=== PATIENT | male | born 1955 | race Caucasian/White ===

== ENCOUNTER 2017-10-30 10:02 | Day surgery (SDC) | payer OTHER ==
[2017-10-23 08:19] VITALS: BMI 34.0
--- NOTE | 2017-10-23 08:46 | PAT Medication Instructions ---
Service Date Oct 23, 2017. Current Home Medication List Atorvastatin (Lipitor), 10 MG PO QPM Omeprazole (Prilosec), 20 MG PO QAM Triamcinolone Acet (Aristocort 0.1%), 1 DOSE TOP PRN Medication Instructions For Your Scheduled Surgery - Hold the following medications 24 hours prior to surgery: Triamcinolone Acet (Aristocort 0.1%), 1 DOSE TOP PRN - Take the following medications the morning of surgery with a sip of water: Omeprazole (Prilosec), 20 MG PO QAM - Take the following medications as scheduled the night before surgery: Atorvastatin (Lipitor), 10 MG PO QPM If you have any questions please call us at [phone] or [phone] or [phone]
--- NOTE | 2017-10-23 09:42 | DIAGNOSTIC IMAGING REPORT ---
CHEST 2 VIEWS ROUTINE CLINICAL HISTORY: Preoperative chest COMPARISON STUDY: Chest CT dated 02/17/2010 FINDINGS: The cardiac and mediastinal contours are normal. There is no evidence of focal pulmonary consolidation. There is no evidence of failure. No pleural effusions are visualized.[There is minor basilar atelectasis/scarring. IMPRESSION: No active disease in the chest. Electronically signed by: Dave Vital M.D. 10/23/2017 9:41 AM Dictated Date/Time: 10/23/2017 9:40 AM
[2017-10-23 09:44] LABS: BASO % 0.6 %; BASO ABS # 0.05 K/uL (0-0.2); EOS % 2.8 %; EOS ABS # 0.23 K/uL (0-0.5); HEMATOCRIT 47.8 % (42-52); HEMOGLOBIN 16.9 g/dL (14.0-18.0); IG# 0.05 K/uL (0.00-0.02); LYMPH % 25.7 %; MEAN CORPUSCULAR HEMOGLOBIN 31.1 pg (25-34); MEAN CORPUSCULAR HGB CONC 35.4 g/dl (32-36); MEAN PLATELET VOLUME 9.9 fL (7.4-10.4); NEUT % 59.3 %; NEUT ABS # 4.84 K/uL (1.4-6.5); PLATELET COUNT 290 K/uL (130-400); RED CELL DISTRIBUTION WIDTH CV 13.6 % (11.5-14.5); RED CELL DISTRIBUTION WIDTH SD 43.8 fL (36.4-46.3); WHITE BLOOD COUNT 8.17 K/uL (4.8-10.8)
[~2017-10-30] VITALS: Ht 182.9 cm; Wt 115.8 kg
[~2017-10-30 10:02] MED LIST: ATOR10TA82 PO; LACTATED RINGER'S 1000ML 1,000 ML IV SCH; PRLSR20 PO; TRMCR130WC TOP
[2017-10-30 10:37] VITALS: BP 140/83; PULSE 67; TEMP 36.8; O2SAT 95; Ht 182.9 cm; Wt 115.8 kg
[2017-10-30] MEDS ORDERED: ATROPINE SULFATE 0.1 MG/ML 5ML SYR IV PRN (11:00)
[2017-10-30] MEDS ORDERED: EpHEDrine SULFATE INJ 50 MG/ML AMP IV PRN (11:00)
[2017-10-30] MEDS ORDERED: ONDANSETRON INJ 2 MG/ML 2 ML VIAL IV PRN ×2 (11:00→14:15)
[2017-10-30] MEDS ORDERED: PROMETHAZINE HCL INJ 12.5 MG in SODIUM CHLORIDE 0.9% 50ML 50 ML IV PRN (11:00)
--- NOTE | 2017-10-30 11:51 | History & Physical Bridge Note ---
H&P Re-Evaluation Bridge Note: I have examined the patient, reviewed the History & Physical and in the interval since the performance of the History & Physical I have noted the following changes of clinical significance: No changes notedSO at bedside pt marked all questions answered
[2017-10-30] MEDS ORDERED: BUPIVACAINE 0.5 % 5 MG/1 ML MPF 30ML VIAL ONE (12:06)
[2017-10-30] MEDS ORDERED: BACITRACIN 50000 UNIT VIAL ONE (12:06)
[2017-10-30] MEDS ORDERED: ONDANSETRON INJ 2 MG/ML 2 ML VIAL ONE (12:09)
[2017-10-30] MEDS ORDERED: DEXAMETHASONE SOD INJ 4 MG/ML VIAL ONE (12:09)
[2017-10-30] MEDS ORDERED: FENTANYL CITRATE INJ 50 MCG/1 ML 2 ML VIAL ONE ×2 (12:09→13:23)
[2017-10-30] MEDS ORDERED: NEOSTIGMINE METHYLSULFATE 5 MG/5 ML SYR ONE (12:09)
[2017-10-30] MEDS ORDERED: PROPOFOL IV EMULSION 10 MG/ML 20 ML VIAL IV ONE (12:09)
[2017-10-30] MEDS ORDERED: GLYCOPYRROLATE INJ 0.2 MG/ML VIAL ONE ×2 (12:09→12:54)
[2017-10-30] MEDS ORDERED: MIDAZOLAM HCL 1 MG/ML 2ML VIAL ONE (12:09)
[2017-10-30] MEDS ORDERED: LIDOCAINE HCL 2% 2 ML VIAL (20MG/ML) ONE (12:09)
[2017-10-30] MEDS ORDERED: CEFAZOLIN SOD 1 GM VIAL ONE (12:54)
[2017-10-30] MEDS ORDERED: LARYING-O-JET KIT (LTA) ONE (12:54)
[2017-10-30] MEDS ORDERED: SODIUM CHLORIDE 0.9% INJ 10 ML VIAL ONE (12:54)
--- NOTE | 2017-10-30 13:49 | [facility] Operative Report ---
Operative Report Operative Date Oct 30, 2017. Pre-Operative Diagnosis Abdominal hernia recurrent supraumbilical Post-Operative Diagnosis Same Procedure(s) Performed Laparoscopic Repair of Recurrent Periumbilical Hernia with 10cm surgimesh Surgeon Dr Castle [place] K[place] Surgeon(s) Lg Yanez PA-C Estimated Blood Loss 10ml Findings incarcerated preperitoneal fat in defect fidel 1.5 cm Specimens none Description of Procedure OR summary dictated confirmation number [id number] I attest to the content of the Intraoperative Record and any orders documented therein. Any exceptions are noted below.
[2017-10-30] MEDS: FENTANYL CITRATE INJ 50 MCG/1 ML 2 ML VIAL IV PRN ×4 (14:00→14:15)
[2017-10-30] MEDS ORDERED: LACTATED RINGER'S 1000ML 1,000 ML IV SCH (14:03)
[2017-10-30] MEDS ORDERED: OXYC-57 PO (14:04)
--- NOTE | 2017-10-30 14:06 | Discharge Instructions ---
Discharge Instructions Date of Service Oct 30, 2017. Visit Reason for Visit: Abdominal Wall Hernia Discharge Discharge Diagnosis / Problem: laparoscopic hernia repair Discharge Goals Goal(s): Decrease discomfort Activity Recommendations Activity Limitations: as noted below Shower/Bathe: tomorrow (remove bandage to shower, leave ster-strips on until follow-up appt) Driving or Machine Use: resume 3 days after discharge Anesthesia . Post Anesthesia Instructions: If you have had General Anesthesia or IV Sedation: * Do not drive today. * Resume driving when surgeon permits. * Do not make important decisions or sign legal documents today. * Call surgeon for: 1. Temperature elevations greater than 101 degrees F. 2. Uncontrollable pain. 3. Excessive bleeding. 4. Persistent nausea and vomiting. 5. Medication intolerance (nausea, vomiting or rash). * For nausea and vomiting use only clear liquids such as: tea, soda, bouillon until nausea subsides, then gradually increase diet as tolerated. * If you have any concerns or questions, call your surgeon's office. If physician is unavailable and it is an emergency, call 911 or go to the nearest emergency room. . Instructions / Follow-Up Instructions / Follow-Up Dr. Castle in 1 week, call [phone] for any questions Diet Recommendations Recommended Home Diet: no limitations Procedures Procedures Performed: Laparoscopic Repair of Recurrent Periumbilical Hernia with 10cm surgimesh Pending Studies Studies pending at discharge: no Medical Emergencies . Who to Call and When: Medical Emergencies: If at any time you feel your situation is an emergency, please call 911 immediately. . Non-Emergent Contact Non-Emergency issues call your: Surgeon Call Non-Emergent contact if: you have a fever, temperature is above 101.5, your pain is not controlled, wound has increased pain, you have any medication questions . . "Provider Documentation" section prepared by Lg Yanez. . [place] Drug Monitoring Program Search Results: no issues identified
[2017-10-30] MEDS ORDERED: LABETALOL HCL IV 5 MG/ML 20ML IV ONE ×2 (14:08→14:14)
[2017-10-30] MEDS ORDERED: NURSING VERBAL MED ORDER ONE (14:10)
[2017-10-30] MEDS ORDERED: MoRPHine SULFATE 2 MG/ML CARP IV PRN (14:15)
[2017-10-30] MEDS ORDERED: OXYCODONE/ACETAMINOPHEN 5-325 TAB PO PRN (14:15)
[2017-10-30] MEDS: HYDROmorphone INJ 1 MG/ML SYR IV PRN ×2 (14:22→14:27)
--- NOTE | 2017-10-30 14:24 | OPERATIVE REPORT ---
DATE OF OPERATION: 10/30/2017 PREOPERATIVE DIAGNOSIS: Recurrent supraumbilical hernia. POSTOPERATIVE DIAGNOSIS: Same. PROCEDURE: Laparoscopic repair recurrent supraumbilical hernia. SURGEON: Dr. Castle. COUPON CLERK: Elroy Yanez PA-C. OPERATION AND FINDINGS: SUMMARY: The patient was brought into the operating room theater under general anesthesia. The abdomen was prepped with Betadine solution and properly draped. We made an incision about 2 fingerbreadths above the previous scar that he had had from a supraumbilical and umbilical hernia repair done about 10 years ago. I made a small incision. We were able to enter the abdomen with a Veress needle followed by CO2. Point of entry inspected and no injury identified, although we did see that we were probably close to some adhesions to the anterior abdominal wall. Therefore under direct visualization, we were able to maneuver the scope that we were able to see the right upper quadrant easily, free of any adhesions. Preemptive analgesia 1% Xylocaine with epinephrine was used to infiltrate an area where a 5 mm trocar was positioned. We similarly placed a right lower quadrant trocar under direct visualization, then we placed a camera in that area, we were able to visualize the umbilical opening basically that the trocar has gone through some omental adhesions to the previous repair, but certainly there is no bowel appreciated. We then maneuvered this mostly by sharp dissection to free up the adhesions to the anterior abdominal wall in the periumbilical area. Some bleeding was encountered with some small vessels coming off the abdominal wall and around the periumbilical area easily controlled with cautery. Once we had identified this, we were in the preperitoneal space, we could see that the patient had an incarcerated fatty tissue mostly preperitoneal fat going into this hernial defect which was about 10-12 o'clock position as it was clinically. We reduced that completely. Once we were able to reduce it we actually found the defect only about 1 cm or so in size. We then exposed that whole area in musculofascial plane to make sure we had good purchase and I elected to bring in a sheet of 10 cm mesh to cover the previous repair and also to go beyond the initial entry site that we went with a 5 mm trocar. The mesh was brought in. We elevated it with nylon stay suture in the central portion. The center portion was approximately an inch above the previous incision for the previous hernia. We tacked it to the anterior abdominal wall, the absorbable ProTack. Once this has been completed, we removed the nylon stay suture and then closed 2-0 nylons, 1 at 12 o'clock position, 1 at 6 o'clock position, fascial stitches. Individual trocars removed, and last the right upper quadrant trocar. Wounds were closed with 0 Vicryl for the 5 mm trocar site that we entered above the umbilicus, the other one with Monocryl. Steri-Strips applied. The procedure was tolerated well by the patient. Estimated blood loss approximately 10 mL. The patient was taken to recovery room in good condition. I attest to the content of the Intraoperative Record and any orders documented therein. Any exceptions are noted below. THOMASD
--- NOTE | 2017-10-30 14:33 | Anesthesiology Progress Note ---
Anesthesia Post Op Note Date & Time Oct 30, 2017 at 14:33 Vital Signs Pain Intensity: 4 Vital Signs Past 12 Hours Date Time Temp Pulse Resp B/P (MAP) Pulse Ox O2 Delivery O2 Flow Rate FiO2 10/30/17 14:25 70 14 151/94 97 Nasal Cannula 2 10/30/17 14:15 63 12 157/97 96 Nasal Cannula 2 10/30/17 14:05 66 14 160/106 100 Oxymask 10 10/30/17 13:55 71 14 160/101 97 Oxymask 10 10/30/17 13:49 36.7 80 20 162/107 100 Oxymask 10 10/30/17 10:37 36.8 67 20 140/83 (102) 95 Room Air Notes Mental Status: alert / awake / arousable, participated in evaluation Pt Amnestic to Procedure: Yes Nausea / Vomiting: adequately controlled Pain: adequately controlled Airway Patency, RR, SpO2: stable & adequate BP & HR: stable & adequate Hydration State: stable & adequate Anesthetic Complications: no major complications apparent
[2017-10-30 14:55] VITALS: BP 137/92; PULSE 62; TEMP 36.4; O2SAT 93
[2017-10-30] MEDS ORDERED: LABETALOL HCL IV 5 MG/ML 20ML IV PRN (15:00)
[2017-10-30 15:30] VITALS: BP 127/85; PULSE 62; TEMP 36.6; O2SAT 94
--- NOTE | 2017-11-21 13:20 | Progress Note ---
Progress Note Date of Service Nov 21, 2017. Progress Note Received a call from Frieda Stover this morning, 11/21/17, regarding Mr. Owen. Pt had called and reported that he had an injury to his tooth and would like to talk to his anesthesiologist. Pt had umbilical hernia repair under [facility] on 10/30/17. I called the patient around 12:45 and spoke with him on the phone for explanation on tooth injury. Pt reported that he didn't have any problem with his tooth until later that night when he was eating chicken noodle soup and a sandwich. He then noticed some hard piece in his mouth and noted that it was part of his crown that had broken off. He stated that it was his right upper molar. Pt said that he couldn't get in touch with his dentist until November 05 when he was finally seen. The dentist took some pictures of his right upper molar prior to fixing his crown and that it costs him $1500. Explained to patient that per the anesthesia record we didn't have problems with intubation and that it was atraumatic. We didn't notice/document anything loose or injured after intubation or extubation. On discharge note, there was not anything recorded either regarding his molar. Explained to patient that his case will be reported and investigated and that someone from the hospital with get in touch with him further for resolution of the problem. Pt understood and agreed with plan. Case has been discussed with Joe To from risk management.
== END 2017-10-30 15:35 | disposition home or self-care (01) ==
LOC: C.ACU 10:02
PROVIDERS: ATTEND Surgery
DX: K42.9 Umbilical hernia without obstruction or gangrene (principal); E78.5 Hyperlipidemia, unspecified; K21.9 Gastro-esophageal reflux disease without esophagitis; L30.9 Dermatitis, unspecified; K44.9 Diaphragmatic hernia without obstruction or gangrene; E66.9 Obesity, unspecified; Z68.34 Body mass index [BMI] 34.0-34.9, adult; Z79.899 Other long term (current) drug therapy